=== PATIENT | male | born 1980 | race Two or more races ===

== ENCOUNTER 2023-06-18 09:42 | Emergency (ER) | payer OTHER ==
[~2023-06-18] VITALS: Ht 152.4 cm; Wt 106.6 kg
[2023-06-18] MEDS ORDERED: AZOR 5-20 MG T1 EACH (09:46)
[2023-06-18] MEDS ORDERED: KETOROLAC TROMETHAMINE 30 MG VIAL IM STA (10:08)
== END 2023-06-18 10:21 | disposition home or self-care (01) ==
LOC: ER 09:43
DX: R42 Dizziness and giddiness (principal); Z88.0 Allergy status to penicillin